=== PATIENT | male | born 1960 | race Two or more races ===

== ENCOUNTER 2021-12-23 21:20 | Emergency (ER) | payer SELFPAY ==
--- NOTE | 2021-12-23 22:11 | NUR ---
WAS INFORMED BY THE EMS THAT PATIENT LEFT WITHOUT BEING TRIGED AND REFUSED TO SEE A DOCTOR OR NURSE
== END 2021-12-23 22:11 | disposition left against medical advice (07) ==
LOC: ER 21:22
DX: Z53.21 Procedure and treatment not carried out due to patient leaving prior to being seen by health care provider (principal)